=== PATIENT | female | born 1990 | race African-American/Black ===

== ENCOUNTER 2023-06-21 22:03 | Emergency (ER) | payer SELFPAY ==
[2023-06-21 22:11] VITALS: BP 146/85; PULSE 62; RESP 18; TEMP 36.4; O2SAT 100
--- NOTE | 2023-06-22 01:35 | PC.NURSE ---
Patient approached intake desk and asked television writer how much longer until she was seen. Patient informed there were three other patient's to be seen before her. Patient became upset and started stating, This is bullshit, how can there be three other people ahead of me. I've been here for hours, I came in by ambulance and I'm still waiting. This is bullshit, I'm leaving . Patient alert and ambulatory out ED exit with her friend.
== END 2023-06-22 01:35 | disposition left against medical advice (07) ==
DX: R10.30 Lower abdominal pain, unspecified (principal)
CPT/HCPCS: 99199